=== PATIENT | male | born 1950 | race Caucasian/White ===

== ENCOUNTER 2017-08-26 13:00 | Day surgery (SDC) | payer BC ==
[~2017-08-26] VITALS: Ht 172.7 cm; Wt 89.0 kg
[~2017-08-26 13:00] MED LIST: ASACOL HD800 MG PO; ASPIR-LOW81 MG PO; ASPIR-MOX 325325 MG PO; ATIVAN0.5 MG PO; Aspirin E.C. PO; Ativan PO; B COMPLETE1 EACH PO; BABY ASPIRIN81 M1 PO; CALCIUM CARB1 TABLET PO; CHILD ASPIRIN81 M1 PO; CIPRO I.V.400 MG/200 IV; CIPRO500 MG PO; CIPROFLOXACIN500 M1 PO; CYANOCOBALAM1000 MCG PO; Combivent IH; DELZICOL400 MG PO; DILAUDID1 MG/ML IV; FLAGYL500 MG/100 IV; GLUCOPHAGE500 MG PO; JANUVIA100 MG PO; K-DUR20 MEQ PO; LISINOPRIL10 MG PO; LOPERAMIDE2 M1 PO; LOPERAMIDE2 MG PO; LORAZEPAM0.5 MG PO; LOVENOX40 MG/0.4 SC; Lasix PO; MAG-OXIDE400 MG PO; MECLIZINE HCL25 MG PO; METOPROLOL SUC100 MG PO; METRONIDAZOLE500 MG PO; Micro-K,K-Tab,K-Dur, PO; OMEPRAZOLE20 MG PO; ONDANSETRON4 MG/2 ML IV; ONGLYZA5 MG PO; OXYCODONE-ACET1 EACH PO; PANTOPRAZOLE SO40 MG PO; PENTASA250 MG PO; PENTASA500 MG PO; PLAVIX75 MG PO; POTASSIUM CHLO20 ME1 PO; PRAVASTATIN SOD80 MG PO; PREDNISONE20 MG PO; PRINIVIL5 MG PO; PROTONIX IV40 MG IV; PROTONIX40 MG PO; Protonix PO; SIMVASTATIN20 MG PO; SIMVASTATIN40 M1 G-TUBE; SIMVASTATIN40 MG PO; SOLU-CORTE100 MG/22 IV; SPIRONOLACTONE25 MG PO; ST. JOSEPH ASPI81 MG PO; TOPROL XL100 MG PO; TOPROL XL6.25 MG PO; Toprol XL PO; Tylenol Extra Streng PO; VITAMIN D31000 UNI2 PO; VITAMIN D31000 UNIT PO; Vitamin D PO; ZOFRAN4 MG PO; Zestril,Prinivil PO; Zocor PO
== END 2017-08-26 17:42 | disposition home or self-care (01) ==
LOC: CATH 13:00
PROVIDERS: Internal Medicine Clinical Cardiac Electrophysiology
DX: Z45.02 Encounter for adjustment and management of automatic implantable cardiac defibrillator (principal); I25.10 Atherosclerotic heart disease of native coronary artery without angina pectoris; E11.9 Type 2 diabetes mellitus without complications; I48.91 Unspecified atrial fibrillation; K21.9 Gastro-esophageal reflux disease without esophagitis; I10 Essential (primary) hypertension; I42.0 Dilated cardiomyopathy; I44.7 Left bundle-branch block, unspecified; E78.2 Mixed hyperlipidemia; Z95.810 Presence of automatic (implantable) cardiac defibrillator; Z87.891 Personal history of nicotine dependence; Z95.5 Presence of coronary angioplasty implant and graft; Z85.46 Personal history of malignant neoplasm of prostate; Z79.82 Long term (current) use of aspirin; Z79.84 Long term (current) use of oral hypoglycemic drugs
CPT/HCPCS: 82948; C1882; J0690; J2250; J3010; J3370; S0020